=== PATIENT | female | born 1985 | race African-American/Black ===

== ENCOUNTER 2016-09-17 19:11 | Emergency (ER) | payer SELFPAY ==
[~2016-09-17] VITALS: Ht 175.3 cm; Wt 54.0 kg
[2016-09-17 20:42] VITALS: BP 108/69
== END 2016-09-17 21:51 | disposition home or self-care (01) ==
LOC: ER 20:07
DX: K64.4 Residual hemorrhoidal skin tags (principal)
CPT/HCPCS: 99282; Z7610

== ENCOUNTER 2017-05-10 15:31 | Emergency (ER) | payer SELFPAY ==
[~2017-05-10] VITALS: Ht 144.8 cm; Wt 56.0 kg
[2017-05-10 17:48] LABS: BASOPHILS % 1.2 % (0.0-2.0); EOSINOPHILS % 3.9 % (0.0-5.0); HEMATOCRIT. 38.7 % (36.0-48.0); HEMOGLOBIN. 13.2 g/dL (12.0-16.0); MEAN CORPUSCULAR HEMOGLOBIN 29.1 pg (28.0-32.0); MEAN PLATELET VOLUME 9.3 fl (7.4-10.4); MONOCYTES % 10.4 % (2.0-8.0); NEUTROPHILS % 53.5 % (40.0-76.0); PLATELET 308 x1000/uL (130-400); RED BLOOD CELL COUNT 4.55 mill/uL (4.2-5.4); RED CELL DISTRIBUTION WIDTH 13.1 % (11.6-14.6)
[2017-05-10 17:53] LABS: CHLORIDE 107 mEq/L (98-107)
[2017-05-10 17:58] LABS: HCG SCREEN NEGATIVE
[2017-05-10 18:02] LABS: CARBON DIOXIDE 28 mEq/L (21-32)
[2017-05-11] MEDS ORDERED: SODIUM CHLORIDE 0.9% 1,000 ML IV ONE (00:30)
[2017-05-11 05:02] VITALS: BP 118/59
== END 2017-05-11 05:03 | disposition home or self-care (01) ==
LOC: ER 15:59
DX: R42 Dizziness and giddiness (principal); R07.9 Chest pain, unspecified; R06.02 Shortness of breath; R11.0 Nausea; R20.2 Paresthesia of skin; G43.909 Migraine, unspecified, not intractable, without status migrainosus; Z98.890 Other specified postprocedural states
CPT/HCPCS: 36415; 71045; 80053; 84443; 84703; 85025; 86850; 86900; 93005; 96360; 99285; J7030

== ENCOUNTER 2017-09-04 15:17 | Emergency (ER) | payer MEDICAID ==
[~2017-09-04] VITALS: Ht 160 cm; Wt 56.0 kg
[2017-09-04 17:03] LABS: CLARITY URINE CLEAR (CLEAR); COLOR URINE YELLOW (YELLOW); KETONES URINE NEGATIVE (NEGATIVE); LEUKOCYTE ESTERASE URINE NEGATIVE (NEGATIVE); NITRITE URINE NEGATIVE (NEGATIVE); OCCULT BLOOD URINE NEGATIVE (NEGATIVE); PH URINE 6.5 (4.5-8.0); PROTEIN URINE NEGATIVE (NEGATIVE); SPECIFIC GRAVITY URINE 1.012 (1.005-1.030)
[2017-09-04 19:57] LABS: BASOPHILS % 1.2 % (0.0-2.0); EOSINOPHILS % 2.3 % (0.0-5.0); HEMATOCRIT. 37.1 % (36.0-48.0); HEMOGLOBIN. 12.7 g/dL (12.0-16.0); LYMPHOCYTES % 29.1 % (20.0-50.0); MEAN CORPUSCULAR HEMOGLOBIN 28.6 pg (28.0-32.0); MEAN CORPUSCULAR VOLUME 83.3 fL (81.0-99.0); MEAN PLATELET VOLUME 9.9 fl (7.4-10.4); MONOCYTES % 10.4 % (2.0-8.0); PLATELET 269 x1000/uL (130-400); RED BLOOD CELL COUNT 4.46 mill/uL (4.2-5.4); RED CELL DISTRIBUTION WIDTH 13.2 % (11.6-14.6)
[2017-09-04 20:02] LABS: CHLORIDE 107 mEq/L (98-107)
[2017-09-04 21:00] VITALS: BP 109/65
== END 2017-09-04 21:12 | disposition home or self-care (01) ==
LOC: ER 15:17
DX: R07.89 Other chest pain (principal); R06.02 Shortness of breath; R55 Syncope and collapse; R42 Dizziness and giddiness; R20.0 Anesthesia of skin
CPT/HCPCS: 36415; 71045; 80053; 81003; 81025; 83690; 84484; 85025; 93005; 99285

== ENCOUNTER 2020-11-24 20:56 | Observation (INO) | payer MEDICAID ==
[~2020-11-24] VITALS: Ht 30.5 cm; Wt 0.5 kg
[2020-11-24] MEDS ORDERED: SODIUM CHLORIDE 0.9% 1,000 ML IV ONE (22:00)
[2020-11-24] MEDS ORDERED: FERR-71 PO (22:16)
[2020-11-24] MEDS ORDERED: PREN1TAB78 PO (22:16)
[2020-11-24] MEDS ORDERED: CHOL400D7 PO (22:16)
[2020-12-10] MEDS ORDERED: IBUP-2030 PO (07:49)
== END 2020-11-25 00:02 | disposition home or self-care (01) ==
LOC: 8 EST LDRP 20:56
PROVIDERS: ADMIT Physician Assistant Medical; ATTEND Physician Assistant Medical
DX: O62.9 Abnormality of forces of labor, unspecified (principal); O26.893 Other specified pregnancy related conditions, third trimester; R10.9 Unspecified abdominal pain; O09.523 Supervision of elderly multigravida, third trimester; Z3A.37 37 weeks gestation of pregnancy
CPT/HCPCS: 59025; 96360; 96361; G0378; 99281; G0379

== ENCOUNTER 2020-12-01 12:14 | Observation (INO) | payer MEDICAID ==
[~2020-12-01] VITALS: Ht 144.8 cm; Wt 60.3 kg
[~2020-12-01 12:14] MED LIST: CHOL400D7 PO; FERR-71 PO; PREN1TAB78 PO
== END 2020-12-01 18:30 | disposition home or self-care (01) ==
LOC: 8 EST LDRP 12:14
PROVIDERS: ADMIT Obstetrics & Gynecology; ATTEND Obstetrics & Gynecology
DX: O62.9 Abnormality of forces of labor, unspecified (principal); O26.893 Other specified pregnancy related conditions, third trimester; R19.7 Diarrhea, unspecified; O42.92 Full-term premature rupture of membranes, unspecified as to length of time between rupture and onset of labor; Z20.822 Contact with and (suspected) exposure to COVID-19; O09.523 Supervision of elderly multigravida, third trimester; Z3A.38 38 weeks gestation of pregnancy
CPT/HCPCS: 59025; 87426; G0378; 99281

== ENCOUNTER 2020-12-04 07:10 | Inpatient (IN) | payer MEDICAID ==
[~2020-12-04] VITALS: Ht 149.9 cm; Wt 60.3 kg
[2020-12-04] MEDS ORDERED: MORPHINE SULFATE/PF 1MG/ML 10ML AMP ONE (08:57)
[2020-12-04] MEDS ORDERED: FENTANYL CITRATE/PF 50MCG/ML 2ML VIAL ONE (08:57)
[2020-12-04] MEDS ORDERED: CEFAZOLIN SODIUM 1000MG/VIAL ONE (08:57)
[2020-12-04] MEDS ORDERED: DIPHENHYDRAMINE 50MG/ML VIAL IV PRN (09:00)
[2020-12-04] MEDS ORDERED: KETOROLAC 30MG/ML VIAL IV PRN (09:00)
[2020-12-04] MEDS ORDERED: HYDROMORPHONE HCL/PF 2MG/ML CPJ IV PRN (09:00)
[2020-12-04] MEDS ORDERED: MEPERIDINE HCL/PF 25MG/ML CPJ IV PRN (09:00)
[2020-12-04] MEDS ORDERED: LABETALOL 5MG/ML SYR 20 MG/4 ML SYRINGE IV PRN (09:00)
[2020-12-04] MEDS ORDERED: ONDANSETRON HCL 4MG/2ML INJ IV PRN ×4 (09:00→21:15)
[2020-12-04] MEDS ORDERED: BUTORPHANOL TARTRATE 2 MG/ML VIAL IM PRN ×2 (09:00→20:45)
[2020-12-04] MEDS ORDERED: NALOXONE HCL 0.4 MG/ML 1ML VIAL IM PRN (09:15)
[2020-12-04] MEDS ORDERED: METHYLERGONOVINE MALEATE 0.2 MG/ML IM PRN (09:15)
[2020-12-04 09:25] LABS: CLARITY URINE CLEAR (CLEAR); COLOR URINE YELLOW (YELLOW); KETONES URINE NEGATIVE (NEGATIVE); LEUKOCYTE ESTERASE URINE NEGATIVE (NEGATIVE); NITRITE URINE NEGATIVE (NEGATIVE); OCCULT BLOOD URINE NEGATIVE (NEGATIVE); PH URINE 5.5 (4.5-8.0); PROTEIN URINE NEGATIVE (NEGATIVE); SPECIFIC GRAVITY URINE 1.012 (1.005-1.030)
[2020-12-04 09:26] LABS: BASOPHILS % 0.6 % (0.0-2.0); EOSINOPHILS % 1.4 % (0.0-5.0); HEMATOCRIT. 33.4 % (36.0-48.0); HEMOGLOBIN. 11.3 g/dL (12.0-16.0); LYMPHOCYTES % 26.8 % (20.0-50.0); MEAN CORPUSCULAR VOLUME 82.4 fL (81.0-99.0); MEAN PLATELET VOLUME 10.4 fl (7.4-10.4); MONOCYTES % 12.9 % (2.0-8.0); NEUTROPHILS % 58.3 % (40.0-76.0); PLATELET 196 x1000/uL (130-400); RED BLOOD CELL COUNT 4.05 mill/uL (4.2-5.4); RED CELL DISTRIBUTION WIDTH 15.6 % (11.6-14.6)
[2020-12-04] MEDS: LACTATED RINGERS 1,000 ML IV SCH ×2 (09:28→09:29)
[2020-12-04 09:31] LABS: *BARBITURATES SCREEN URINE NEGATIVE (NEGATIVE); CANNABINOID URINE SCREEN NEGATIVE (NEGATIVE); OPIATES URINE SCREEN NEGATIVE (NEGATIVE); PHENCYCLIDINE URINE SCREEN NEGATIVE (NEGATIVE)
[2020-12-04 09:32] LABS: *AMPHETAMINES SCREEN URINE NEGATIVE (NEGATIVE); *BENZODIAZEPINES SCREEN URINE NEGATIVE (NEGATIVE); *COCAINE SCREEN URINE NEGATIVE (NEGATIVE); METHADONE URINE SCREEN NEGATIVE (NEGATIVE)
[2020-12-04 09:35] LABS: INR 0.9; PARTIAL THROMBOPLASTIN TIME 23.9 sec (23.4-31.0); PROTHROMBIN TIME 10.1 sec (9.6-11.0)
[2020-12-04] MEDS ORDERED: PHENYLEPHRINE HCL 10 MG/ML 1ML (IV VIAL) IV ONE (10:55)
[2020-12-04 11:12] LABS: HEPATITIS B SURFACE ANTIGEN NEGATIVE
[2020-12-04] MEDS: DEXT 5%/LR + PITOCIN 20UNITS/L 1,000 ML IV SCH ×2 (11:49→16:45)
[2020-12-04 14:15] VITALS: BP 105/69
[2020-12-04 15:15] VITALS: BP 101/60
[2020-12-04 17:16] VITALS: BP 98/63
[2020-12-04] MEDS ORDERED: DIPHENHYDRAMINE 25MG CAPSULE PO PRN ×2 (18:45→20:45)
[2020-12-04] MEDS ORDERED: IBUPROFEN 400MG TABLET PO PRN (18:45)
[2020-12-04] MEDS ORDERED: RHO(D) IMMUNE GLOBULIN 300 MCG/SYR IM PRN (18:45)
[2020-12-04] MEDS ORDERED: HEMORRHOIDAL SUPP PR PRN (18:45)
[2020-12-04] MEDS ORDERED: LANOLIN OINT 7GM TUBE TOP PRN (18:45)
[2020-12-04] MEDS ORDERED: HYDROCODONE/ACETAMINOPHEN 5/325MG TABLET PO PRN ×2 (18:45)
[2020-12-04 19:50] VITALS: BP 102/60
[2020-12-04] MEDS: SIMETHICONE 80MG TABLET CHEW PO SCH (21:00)
[2020-12-04] MEDS: MAGNESIUM/ALUMINUM HYDROXIDE/SIMETHICONE 30ML UDC PO SCH (21:00)
[2020-12-04] MEDS: DOCUSATE SODIUM 100MG CAPSULE PO SCH (21:00)
[2020-12-05] VITALS (8 sets, daily range): BP systolic 99–118; BP diastolic 59–77
[2020-12-05] MEDS: KETOROLAC 30MG/ML VIAL IV PRN ×2 (01:04→08:50)
[2020-12-05] MEDS: FERROUS SULFATE 325MG TABLET PO SCH ×2 (07:30→12:30)
[2020-12-05] MEDS: MAGNESIUM/ALUMINUM HYDROXIDE/SIMETHICONE 30ML UDC PO SCH ×3 (08:50→21:30)
[2020-12-05] MEDS: BISACODYL 10MG SUPP PR PRN (08:51)
[2020-12-05] MEDS: SIMETHICONE 80MG TABLET CHEW PO SCH ×3 (08:51→21:28)
[2020-12-05 16:12] LABS: HEMATOCRIT. 22.6 % (36.0-48.0); HEMOGLOBIN. 7.6 g/dL (12.0-16.0); MEAN CORPUSCULAR HEMOGLOBIN 28.3 pg (28.0-32.0); MEAN CORPUSCULAR VOLUME 84.4 fL (81.0-99.0); MEAN PLATELET VOLUME 9.2 fl (7.4-10.4); PLATELET 167 x1000/uL (130-400); RED BLOOD CELL COUNT 2.68 mill/uL (4.2-5.4); RED CELL DISTRIBUTION WIDTH 15.5 % (11.6-14.6)
[2020-12-05] MEDS: IBUPROFEN 800MG TABLET PO PRN (16:55)
[2020-12-05 17:45] LABS: PLATELET ESTIMATE NORMAL
[2020-12-05] MEDS: DOCUSATE SODIUM 100MG CAPSULE PO SCH (21:00)
[2020-12-05] MEDS ORDERED: KETOROLAC 30MG/ML VIAL IM NR (21:15)
[2020-12-05] MEDS: DEXT 5%/LACTATED RINGERS 1,000 ML IV SCH (21:28)
[2020-12-05] MEDS ORDERED: GENTAMICIN 100MG PREMIX 100 ML IV NR (21:45)
[2020-12-05] MEDS: AMPICILLIN 2,000 MG in SODIUM CHLORIDE 0.9% 100 ML IV SCH (21:57)
[2020-12-05] MEDS ORDERED: GENTAMICIN 100MG PREMIX 50 ML IV NR (23:00)
[2020-12-05 23:19] LABS: CHLORIDE 111 mEq/L (98-107)
[2020-12-06 03:30] VITALS: BP 119/72
[2020-12-06] MEDS: AMPICILLIN 2,000 MG in SODIUM CHLORIDE 0.9% 100 ML IV SCH ×4 (03:33→22:13)
[2020-12-06] MEDS: KETOROLAC 30MG/ML VIAL IV PRN ×2 (06:29→14:27)
[2020-12-06 06:53] LABS: BASOPHILS % 0.2 % (0.0-2.0); EOSINOPHILS % 0.3 % (0.0-5.0); MEAN CORPUSCULAR VOLUME 83.9 fL (81.0-99.0); MEAN PLATELET VOLUME 9.6 fl (7.4-10.4); MONOCYTES % 10.5 % (2.0-8.0); PLATELET 170 x1000/uL (130-400); RED BLOOD CELL COUNT 2.37 mill/uL (4.2-5.4); RED CELL DISTRIBUTION WIDTH 15.6 % (11.6-14.6)
[2020-12-06 07:50] VITALS: BP 114/65
[2020-12-06 07:52] LABS: HEMOGLOBIN. 6.6 g/dL (12.0-16.0)
[2020-12-06 07:53] LABS: HEMATOCRIT. 19.8 % (36.0-48.0)
[2020-12-06] MEDS: FERROUS SULFATE 325MG TABLET PO SCH ×3 (08:00→18:22)
[2020-12-06] MEDS: PRENATAL VIT/FE FUMARATE/FA TABLET PO SCH ×2 (08:00→11:02)
[2020-12-06] MEDS: MAGNESIUM/ALUMINUM HYDROXIDE/SIMETHICONE 30ML UDC PO SCH ×4 (08:00→21:00)
[2020-12-06] MEDS: SIMETHICONE 80MG TABLET CHEW PO SCH ×4 (08:00→21:00)
[2020-12-06] MEDS ORDERED: GENTAMICIN 80MG PREMIX 100 ML IV SCH (10:00)
[2020-12-06 12:15] VITALS: BP 115/70
[2020-12-06 16:10] VITALS: BP 117/71
[2020-12-06] MEDS: IBUPROFEN 800MG TABLET PO PRN (18:22)
[2020-12-06] MEDS: BISACODYL 10MG SUPP PR PRN (21:47)
[2020-12-06] MEDS: DOCUSATE SODIUM 100MG CAPSULE PO SCH (21:47)
[2020-12-06 22:00] VITALS: BP 125/73
[2020-12-07] VITALS: BP 120/80
[2020-12-07] MEDS: GENTAMICIN 80MG PREMIX 100 ML IV SCH ×2 (02:35→14:34)
[2020-12-07 04:00] VITALS: BP 119/80
[2020-12-07] MEDS: AMPICILLIN 2,000 MG in SODIUM CHLORIDE 0.9% 100 ML IV SCH ×2 (04:01→10:15)
[2020-12-07] MEDS: KETOROLAC 30MG/ML VIAL IV PRN ×2 (04:25→18:31)
[2020-12-07 07:40] VITALS: BP 113/74
[2020-12-07] MEDS: SIMETHICONE 80MG TABLET CHEW PO SCH ×2 (08:00→12:30)
[2020-12-07] MEDS: FERROUS SULFATE 325MG TABLET PO SCH ×2 (08:30→12:30)
[2020-12-07] MEDS: MAGNESIUM/ALUMINUM HYDROXIDE/SIMETHICONE 30ML UDC PO SCH ×2 (08:30→12:30)
[2020-12-07] MEDS: PRENATAL VIT/FE FUMARATE/FA TABLET PO SCH (09:00)
[2020-12-07] MEDS ORDERED: IOHEXOL-300 100 ML BOTTLE ONE (09:59)
[2020-12-07 10:47] LABS: BASOPHILS % 0.5 % (0.0-2.0); EOSINOPHILS % 0.9 % (0.0-5.0); HEMATOCRIT. 21.3 % (36.0-48.0); HEMOGLOBIN. 7.2 g/dL (12.0-16.0); LYMPHOCYTES % 9.6 % (20.0-50.0); MEAN CORPUSCULAR HEMOGLOBIN 27.9 pg (28.0-32.0); MEAN CORPUSCULAR VOLUME 82.6 fL (81.0-99.0); MEAN PLATELET VOLUME 9.4 fl (7.4-10.4); MONOCYTES % 9.3 % (2.0-8.0); NEUTROPHILS % 79.7 % (40.0-76.0); PLATELET 214 x1000/uL (130-400); RED BLOOD CELL COUNT 2.58 mill/uL (4.2-5.4); RED CELL DISTRIBUTION WIDTH 15.5 % (11.6-14.6)
[2020-12-07 11:08] LABS: CHLORIDE 109 mEq/L (98-107)
[2020-12-07 12:10] VITALS: BP 115/71
[2020-12-07] MEDS: DEXT 5%/LACTATED RINGERS 1,000 ML IV SCH (15:31)
[2020-12-07] MEDS: LACTATED RINGERS 1,000 ML IV SCH (18:31)
[2020-12-07 20:00] VITALS: BP 119/74
[2020-12-08] VITALS (11 sets, daily range): BP systolic 117–137; BP diastolic 62–85
[2020-12-08] MEDS: LACTATED RINGERS 1,000 ML IV SCH ×4 (00:31→22:34)
[2020-12-08] MEDS ORDERED: GENTAMICIN 60MG PREMIX 50 ML IV SCH (05:00)
[2020-12-08] MEDS: GENTAMICIN SULFATE 60 MG in SODIUM CHLORIDE 0.9% 50 ML IV SCH ×2 (07:05→18:57)
[2020-12-08 09:06] LABS: BASOPHILS % 0.3 % (0.0-2.0); HEMATOCRIT. 27.1 % (36.0-48.0); LYMPHOCYTES % 7.4 % (20.0-50.0); MEAN CORPUSCULAR VOLUME 83.1 fL (81.0-99.0); MEAN PLATELET VOLUME 8.5 fl (7.4-10.4); MONOCYTES % 9.2 % (2.0-8.0); NEUTROPHILS % 82.1 % (40.0-76.0); PLATELET 258 x1000/uL (130-400); RED BLOOD CELL COUNT 3.26 mill/uL (4.2-5.4); RED CELL DISTRIBUTION WIDTH 15.3 % (11.6-14.6)
[2020-12-08 09:25] LABS: HEMOGLOBIN. 9.4 g/dL (12.0-16.0)
[2020-12-08 09:26] LABS: CHLORIDE 111 mEq/L (98-107)
[2020-12-08] MEDS: AMPICILLIN 2,000 MG in SODIUM CHLORIDE 0.9% 100 ML IV SCH ×3 (10:29→22:28)
[2020-12-09] VITALS: BP 122/56
[2020-12-09] MEDS: KETOROLAC 30MG/ML VIAL IV PRN ×2 (00:06→22:29)
[2020-12-09 04:00] VITALS: BP 116/60
[2020-12-09] MEDS: LACTATED RINGERS 1,000 ML IV SCH ×4 (04:37→22:30)
[2020-12-09] MEDS: AMPICILLIN 2,000 MG in SODIUM CHLORIDE 0.9% 100 ML IV SCH ×4 (04:37→22:28)
[2020-12-09] MEDS: GENTAMICIN SULFATE 60 MG in SODIUM CHLORIDE 0.9% 50 ML IV SCH ×2 (06:17→17:27)
[2020-12-09 08:00] VITALS: BP 140/71
[2020-12-09 12:00] VITALS: BP 120/73
[2020-12-09 16:00] VITALS: BP 130/71
[2020-12-09 20:00] VITALS: BP 122/72
[2020-12-10] VITALS: BP 109/63
[2020-12-10 04:00] VITALS: BP 107/62
[2020-12-10] MEDS: AMPICILLIN 2,000 MG in SODIUM CHLORIDE 0.9% 100 ML IV SCH ×3 (04:17→15:30)
[2020-12-10] MEDS: GENTAMICIN SULFATE 60 MG in SODIUM CHLORIDE 0.9% 50 ML IV SCH (06:37)
[2020-12-10] MEDS: LACTATED RINGERS 1,000 ML IV SCH ×2 (06:38→12:20)
[2020-12-10] MEDS ORDERED: IBUP-2030 PO (07:49)
[2020-12-10 08:00] VITALS: BP 126/84
[2020-12-10 16:18] VITALS: BP 126/84
== END 2020-12-10 17:03 | disposition home or self-care (01) | DRG 540 ==
LOC: 8 EST LDRP 07:10 → OBSVTOIN 07:10 → 8EST 13:41 → 6EST 12-07 17:00
PROVIDERS: ADMIT Obstetrics & Gynecology; ATTEND Obstetrics & Gynecology
PROC: 10D00Z1 Extraction of Products of Conception, Low, Open Approach (ICD-10-PCS; principal; 2020-12-04)
PROC: 30233N1 Transfusion of Nonautologous Red Blood Cells into Peripheral Vein, Percutaneous Approach (ICD-10-PCS; 2020-12-08)
DX: O34.211 Maternal care for low transverse scar from previous cesarean delivery (principal); D62 Acute posthemorrhagic anemia; O99.63 Diseases of the digestive system complicating the puerperium; K56.7 Ileus, unspecified; K91.89 Other postprocedural complications and disorders of digestive system; O90.81 Anemia of the puerperium; Z37.0 Single live birth; Z3A.39 39 weeks gestation of pregnancy
CPT/HCPCS: 36415; 71045; 74021; 74177; 76700; 76856; 80053; 80170; 80305; 81003; 85025; 86592; 86703; 86762; 86850; 86900; 86920; 87340; 88307; J0290; J0690; J1580; J1885; J2274; J2370; J2590; J3010; J7050; J7120; J7121; P9016; Q0163; Q9967; A4315

== ENCOUNTER 2025-01-24 19:19 | Emergency (ER) | payer MEDICAID, OTHER ==
[~2025-01-24] VITALS: Ht 144.8 cm; Wt 62.0 kg
[~2025-01-24 19:19] MED LIST changes: +IBUP-2030 PO
[2025-01-24 19:38] VITALS: O2SAT 99
[2025-01-24 20:32] LABS: BASOPHILS % 0.7 % (0.0-2.0); EOSINOPHILS % 4.4 % (0.0-5.0); HEMATOCRIT. 39.0 % (36.0-48.0); HEMOGLOBIN. 13.2 g/dL (12.0-16.0); LYMPHOCYTES % 39.4 % (20.0-50.0); MEAN PLATELET VOLUME 9.9 fl (7.4-10.4); MONOCYTES % 7.9 % (2.0-8.0); NEUTROPHILS % 47.6 % (40.0-76.0); PLATELET 240 x1000/uL (130-400); RED BLOOD CELL COUNT 4.53 mill/uL (4.2-5.4); RED CELL DISTRIBUTION WIDTH 13.3 % (11.6-14.6)
[2025-01-24 20:37] LABS: CLARITY URINE CLEAR (CLEAR); COLOR URINE YELLOW (YELLOW); GLUCOSE URINE NEGATIVE (NEGATIVE); KETONES URINE NEGATIVE (NEGATIVE); LEUKOCYTE ESTERASE URINE NEGATIVE (NEGATIVE); NITRITE URINE NEGATIVE (NEGATIVE); OCCULT BLOOD URINE NEGATIVE (NEGATIVE); PH URINE 7.5 (4.5-8.0); PROTEIN URINE NEGATIVE (NEGATIVE); SPECIFIC GRAVITY URINE 1.015 (1.005-1.030); UROBILINOGEN URINE 1.0 E.U./dL (0.2-1.0)
[2025-01-24 20:46] LABS: CREATININE 0.8 mg/dL (0.6-1.0); UREA NITROGEN BLOOD 7 mg/dL (9-23)
[2025-01-24] MEDS ORDERED: AZIT250T12 MT (20:54)
[2025-01-24] MEDS ORDERED: GUAI237L83 MT (20:54)
[2025-01-24] MEDS ORDERED: ALBU18HF2 IH (20:54)
[2025-01-24 21:17] VITALS: BP 121/73; PULSE 67; RESP 15; TEMP 36.7; O2SAT 98
== END 2025-01-24 21:18 | disposition home or self-care (01) ==
LOC: ER 19:19
DX: J20.9 Acute bronchitis, unspecified (principal); Z79.899 Other long term (current) drug therapy; Z98.890 Other specified postprocedural states
CPT/HCPCS: 36415; 71045; 80048; 81003; 81025; 83880; 85025; 93005; 99285